=== PATIENT | female | born 1945 | race Caucasian/White ===

== ENCOUNTER → 2023-10-04 14:36 | Outpatient (REF) | payer MEDICARE, OTHER, SELFPAY ==
[2023-10-04 15:21] LABS: B.E. 8.7 mmol/L; HCO3 32.8 mmol/L (21-28); PCO2 42 mmHg (32-35); PO2 74 mmHg (83-108)
== END ==
LOC: RSP 14:36
PROVIDERS: ATTENDING PHYSICIAN Internal Medicine Critical Care Medicine; FAMILY PHYSICIAN Family Medicine
DX: J44.9 Chronic obstructive pulmonary disease, unspecified (principal)
CPT/HCPCS: 36415; 36600; 82805

== ENCOUNTER → 2024-03-19 14:04 | Outpatient (REF) | payer MEDICARE, OTHER, SELFPAY | LOC: HWRAD 14:04 | PROVIDERS: ATTENDING PHYSICIAN Internal Medicine Critical Care Medicine; FAMILY PHYSICIAN Family Medicine | DX: R06.09 Other forms of dyspnea (principal); R91.1 Solitary pulmonary nodule | CPT/HCPCS: 71250 ==

== ENCOUNTER 2024-09-15 16:28 | Emergency (ER) | payer MEDICARE, OTHER, SELFPAY ==
[2024-09-15 16:31] VITALS: BP 158/81; BMI 25.0
[2024-09-15 16:36] VITALS: BP 158/81
--- NOTE | 2024-09-15 16:41 | ED.GENMED ---
History of Present Illness
General
Chief Complaint: Weakness
Source: patient and family (son at bedside)
Exam Limitations: none
Time Seen by Provider: 09/15/24 16:38
Nursing documentation reviewed up to this point in time: agreed with
History of Present Illness
History of Present Illness:
78 yo female from home where she lives with her is here for 'I fell' and 'I just want to sleep all the time.' Son, Goyo, at bedside states pt fell 3 times in past 72 hours. This a.m. walking from bathroom, got weak and fell, hitting back
of head on dresser. No LOC, not anticoagulated, no significant injury from falls. Scrape left upper arm and bruise L thumb from previous recent fall.
Son states past 2 days pt has had no appetite, feels more SOB with more cough than usual, coughed up a 'big yellow mucus plug' this a.m., pt stays in bed most of time for past year. Gets up to use BR and to use her nebulizer. Does not use can or
walker
Goyo states PCP has told them she is 'maxed out' on any further therapies for her COPD and has prescribed Morphine. Son is interested in speaking to someone about Palliative vs Hospice care.
Goyo states pt's son from another marriage at age 59 two weeks ago of [place], [place]. She did not have a close relationship with him and he lived over 3 hours away so had not seen him or spoken to him for over 15 years and past few years she spoke
with him on phone a few times and she always had hope that he would come see her.
They cremated him 2 days ago. Son at bedside states there is an element of depression here due to this situation.
Pt denies CP, n/v/d/c.
Past History
Past History
ED Past Medical History: Arrthythmia, HTN and Hypercholesterolemia
ED Past Surgical History: Cardiac and Orthopedic
Social History
Tobacco: Non-smoker (Pacemaker)
Personal:
Living: with family
Family History
Family History: Negative Diabetes, Hypertension, Early CAD, Asthma or Cancer
Review of Systems
Review of Systems
Allergies reviewed?: Yes
All Other Systems: ROS reviewed and negative except as documented in HPI and ROS
Constitutional: Reports fatigue; Denies fever
EENT: Denies sore throat
Respiratory: Reports cough and trouble breathing
Cardiac: Denies chest pain
ABD/GI: Denies abdominal pain, nausea, vomiting or diarrhea
: Denies dysuria or difficulty voiding
Musculoskeletal: Reports no symptoms; Denies edema
Skin: Reports no symptoms
Neurological: Reports no symptoms
Psychiatric: Reports depression and anxiety
Phy Exam
Physical Exam
Physical Exam:
GENERAL: No acute distress. Chronically ill appearing. A&Ox3.
CONSTITUTIONAL: Afebrile.
EYES: clear, conjunctivae normal
ENMT: moist mucus membranes, Pharynx nl
RESPIRATORY: Regular respirations, mildly labored, lungs with diminished BS throughout, occasional cough noted.
CARDIOVASCULAR: Regular rate and rhythm, no murmurs, no rubs.
GI: Soft, nontender, normal BS
MUSCULOSKELETAL: Moves with ease. Well perfused. No edema
SKIN: Warm, dry, pink
PSYCH: Anxious mood and affect. Well kept, interactive and appropriate
NEUROLOGIC: Awake, alert and oriented. No focal neurological deficits
Course
Orders/Labs/Results
Orders:
Orders
09/15/24 16:39
Urinalysis Reflex To Culture Urgent
Date Specimen was Collected: 09/15/24
Time Specimen was Collected: 17:17
0.9% Sodium Chloride 1000 ml [Nss] 1,000 ml IV BOLUS
09/15/24 16:40
Electrocardiogram (*1) Urgent
Reason for Study: Fatigue / Weakness
EKG- Treatment ONCE
CR Chest Single View Urgent
Reason For Exam: SOB, cough, hx COPD
09/15/24 16:42
COVID-19 Antigen Urgent
Source: Nasal Swab
Complete Blood Count/With Diff Urgent
Comprehensive Metabolic Panel Urgent
Influenza A+B Rapid Molecular Urgent
ISMAEL Source: Nasal Swab
Specimen Description:
09/15/24 17:54
Lorazepam [Ativan] 1 mg PO NOW STA
09/15/24 17:55
Lorazepam [Ativan] 1 mg .ROUTE .STK-MED ONE
09/15/24 18:33
Ipratropium/Albuterol Sulfate [Duoneb] 3 ml INH R NOW STA
09/15/24 18:35
Morphine Sulfate [Morphine Oral Solution] 5 mg PO NOW STA
Abnormal Lab Results
09/15/24
16:42
RBC 3.74 L 10^6/uL
(4.20-5.40)
Hgb 11.6 L g/dL
(12.0-16.0)
Hct 36.9 L %
(37.0-47.0)
MCHC 31.4 L g/dL
(33.0-37.0)
Absolute Neuts (auto) 6.7 H 10^3/uL
(1.4-6.5)
Absolute Lymphs (auto) 0.4 L 10^3/uL
(1.2-3.4)
Neutrophils % 87.8 H %
(42.2-75.2)
Lymphocytes % 5.3 L %
(20.5-51.1)
Carbon Dioxide 35 H mmol/L
(22-30)
BUN 38 H mg/dl
(7-17)
Glucose 126 H mg/dl
(70-99)
AST 43 H U/L
(14-36)
09/15/24 16:42
09/15/24 16:42
Vital Signs
Initial and Last Documented VS:
Initial Vital Signs
Temp Pulse Resp BP Pulse Ox
98.0 F 81 18 158/81 99
09/15/24 16:31 09/15/24 16:31 09/15/24 16:31 09/15/24 16:31 09/15/24 16:31
Last Documented Vital Signs
Temp Pulse Resp BP Pulse Ox
98.0 F 89 20 150/78 100
09/15/24 16:31 09/15/24 19:30 09/15/24 17:45 09/15/24 19:00 09/15/24 19:15
MDM/Problems Addressed
Differential Diagnosis Includes:
COPD exacerbation, PNA
MDM/Problems Addressed:
78 yo female from home where she lives with her is here for 'I fell' and 'I just want to sleep all the time.' Son, Goyo, at bedside states pt fell 3 times in past 72 hours. This a.m. walking from bathroom, got weak and fell, hitting back
of head on dresser. No LOC, not anticoagulated, no significant injury from falls. Scrape left upper arm and bruise L thumb from previous recent fall.
Son states past 2 days pt has had no appetite, feels more SOB with more cough than usual, coughed up a 'big yellow mucus plug' this a.m., pt stays in bed most of time for past year. Gets up to use BR and to use her nebulizer. Does not use can or
walker
Goyo states PCP has told them she is 'maxed out' on any further therapies for her COPD and has prescribed Morphine. Son is interested in speaking to someone about Palliative vs Hospice care.
Goyo states pt's son from another marriage at age 60 two weeks ago of [place], [place]. She did not have a close relationship with him and he lived over 3 hours away so had not seen him or spoken to him for over 15 years and past few years she spoke
with him on phone a few times and she always had hope that he would come see her.
They cremated him 2 days ago. Son at bedside states there is an element of depression here due to this situation.
Pt denies CP, n/v/d/c.
5:30 p.m.
CBC with no clinically significant abnormality
CMP: BUN 38 IVF's infusing for dehydration, otherwise normal CMP
UA: Neg
COVID-negative
Flu negative
EKG NSR
At request of son, Message sent to Case Management to please contact giuliano Nance to discuss Palliative/Hospice care.
Son is getting walker and giving it to pt.
Esperanza from Case Management spoke with son
Pt requesting Ativan, given her prescribed dose
CXR: NAD
CW is setting up home care. So given info for Palliative Care.
7:00 p.m.
Pt remains stable, intermittent anxiety, pulse ox maintaining 99-100% on 4L NC
Pt stable for discharge
Chronic conditions affecting care: HTN, COPD and Psychiatric illness (depression)
*EKG
EKG Intrepretation Date: 09/15/24
Interpretation: normal
Heart Rate: 78
Rate: normal
Rhythm: sinus
[place]: normal axis
Interval: normal interval
QRS Pattern: normal QRS
Ischemia: no ischemia
*Critical Care Note
Total Time (30-74mins, 75-104mins- exclusive of procedures): Not Applicable
ED Attending Note
-
Portions of this chart may have been created with voice recognition software.� Occasional wrong word or��sound alike� substitutions may have occurred due to the inherent limitations of voice recognition software.
Discharge Plan
Departure
Patient Disposition: Home (Routine Discharge)
Date of Disposition: 09/15/24
Time of Disposition: 19:21
Patient with high blood pressure during this ER visit?: No
Condition: Fair
Discharge Problem:
Anxiety
Instructions: Anxiety in adults - ED discharge instructions
Prescriptions:
No Action
lorazepam 1 MG tablet
1 mg PO TID
sennosides [Senokot] 8.6 mg Tablet
17.2 mg PO DAILY
azithromycin 250 mg Tablet
250 mg PO MOWEFR
cyanocobalamin (vitamin B-12) 1,000 mcg Tablet
1,000 mcg PO DAILY@1200
Theragen Tablet
1 tab PO DAILY@1200
omeprazole 40 mg Capsule,Delayed Release(Dr/Ec)
40 mg PO DAILY
aspirin 81 mg Tablet,Delayed Release (Dr/Ec)
81 mg PO DAILY
calcium carbonate [Calcium 500] 500 mg calcium (1,250 mg) Tablet
1,200 mg PO DAILY@1200
ascorbic acid (vitamin C) [Vitamin C] 500 mg Tablet
1,000 mg PO DAILY@1200
lisinopril 10 mg Tablet
10 mg PO DAILY
Hair,Skin and Nails Tablet
3 tab PO DAILY@1200
albuterol sulfate [ProAir HFA] 90 mcg/actuation Hfa Aerosol Inhaler
2 puff INHALATION R QIDPRN PRN (Reason: sob)
loratadine 10 mg Tablet
10 mg PO DAILY
escitalopram oxalate [Lexapro] 10 mg Tablet
10 mg PO DAILY
glucosamine-chondroitin [Osteo Bi-Flex] 250-200 mg Tablet
1 tab PO DAILY@1200
rosuvastatin [Crestor] 10 mg Tablet
2.5 mg PO DAILY
gabapentin 100 mg Tablet
100 mg PO DAILY
cholecalciferol (vitamin D3) [Vitamin D3] 25 mcg (1,000 unit) Tablet
50 mcg PO DAILY@1200
biotin 5 mg Tablet
5 mg PO DAILY@1200
omega 0-oqv-mwh-fish oil [Fish Oil] 1,000 (120-180) mg Capsule
2 cap PO DAILY@1200
PreserVision AREDS 2,148 mcg-113 mg-45 mg-17.4mg Tablet
1 tab PO BID
prednisone 10 MG tablet
10 mg PO BID
ipratropium-albuterol [DuoNeb] 0.5 mg-3 mg(2.5 mg base)/3 mL Solution For Nebulization
3 ml INHALATION R Q6HPRN PRN (Reason: sob)
albuterol sulfate 2.5 mg /3 mL (0.083 %) Solution For Nebulization
2.5 mg INHALATION R QID
budesonide 0.5 mg/2 mL Suspension For Nebulization
0.5 mg INHALATION R BID
tramadol 50 mg Tablet
50 mg PO TID
morphine 10 mg/5 mL Solution
5 mg PO QID
Referrals:
Jacobo Newton MD [Family Provider] - As needed
Activity Restrictions/Additional Instructions:
As we discussed, your workup here today shows nothing worrisome.
Continue your current medications
Consider home health care and Palliative Care
Interventions
Interventions:
*Risk Screen - Suicide Last Done: 09/15/24 16:31
*General Assessment Last Done: 09/15/24 16:31
*Neglect/Abuse Screening Last Done: 09/15/24 16:31
ED- Fall Risk Assessment Last Done: 09/15/24 18:03
*ED COVID-19 Vaccine History Last Done: 09/15/24 16:40
*Nursing Disposition Last Done: 09/15/24 20:03
ED- Cardiac Assessment Last Done: 09/15/24 16:31
ED- Neurological Assessment Last Done: 09/15/24 16:31
ED- Pulmonary Assessment Last Done: 09/15/24 16:31
Discharge Date and Time
Discharge Date/Time: 09/15/24 20:03
Print Language: EQUATORIAL GUINEAN
[2024-09-15 17:00] VITALS: BP 149/89
[2024-09-15] MEDS: NSS 1000 IV (17:00)
[2024-09-15 17:02] LABS: % Basophils 0.7 % (0-2); % Eosinophils 0.1 % (0-6); % Immature Granulocytes 0.4 % (0-0.5); % Lymphocytes 5.3 % (20.5-51.1); % Monocytes 5.7 % (1.7-9.3); % Neutrophils 87.8 % (42.2-75.2); Absolute Basophils 0.1 10^3/uL (0-0.2); Absolute Lymphocytes 0.4 10^3/uL (1.2-3.4); Absolute Monocytes 0.4 10^3/uL (0.1-0.6); Absolute Neutrophils 6.7 10^3/uL (1.4-6.5); Hematocrit 36.9 % (37.0-47.0); Hemoglobin 11.6 g/dL (12.0-16.0); Mean Corp Hgb Conc. 31.4 g/dL (33.0-37.0); Mean Corpuscular Volume 98.7 fL (81.0-99.0); Mean Platelet Volume 10.1 fL (7.4-10.4); Nucleated Red Blood Cells % 0 %; Platelet Count 193 10^3/uL (130-400); Red Blood Cell Count 3.74 10^6/uL (4.20-5.40); Red Cell Dist. Width 13.2 % (11.5-14.5); White Blood Cell Count 7.6 10^3/uL (4.8-10.8)
[2024-09-15 17:19] LABS: COVID-19 Antigen Negative (Negative)
[2024-09-15 17:28] LABS: ALT (SGPT) 27 U/L (0-35); AST (SGOT) 43 U/L (14-36); Albumin 3.9 g/dl (3.5-5.0); Alkaline Phosphatase 52 U/L (38-126); Blood Urea Nitrogen 38 mg/dl (7-17); Calcium 9.1 mg/dl (8.4-10.2); Chloride 99 mmol/L (98-107); Estimated Creatinine Clearance 77 ml/min; Glucose 126 mg/dl (70-99); Potassium 4.6 mmol/L (3.5-5.1); Sodium 139 mmol/L (135-145); Total Bilirubin 0.5 mg/dl (0.2-1.3); Total Protein 6.5 g/dl (6.3-8.2); eGFR > 60.00
[2024-09-15 17:41] VITALS: BP 154/81
[2024-09-15 17:44] LABS: Carbon Dioxide 35 mmol/L (22-30)
[2024-09-15] MEDS: ATIVAN 1 MG PO (18:01)
--- NOTE | 2024-09-15 18:09 | CM ---
CM reviewed medical records. CM discussed hospice, palliative care and VN options. Patient's son stated that patient has been declining recently including decreased appetite, decreased mobility and depression. Son stated that he understands that
patient is end stage COPD and would like to discuss palliative care. Son stated that he is unsure what services patient has, but he stated that 'no one comes to the house'. CM provide written information on Palliative Care.
CM spoke with patient. She is agreeable to [facility]. CM sent referral via [facility].
CM updated son.
[2024-09-15 18:15] LABS: Urine Albumin Negative (Neg - Trace); Urine Bilirubin Negative (Negative); Urine Character Clear (Clear); Urine Color Yellow; Urine Glucose Negative (Negative); Urine Ketone Negative (Negative); Urine Leukocyte Negative (Negative); Urine Nitrite Negative (Negative); Urine Occult Blood Negative (Negative); Urine Urobilinogen Negative (Neg - 1+)
[2024-09-15] MEDS: DUONEB 3 ML INH (18:35)
[2024-09-15 19:00] VITALS: BP 150/78
[2024-09-15] MEDS: MORPHINE ORAL SOLUTION 5 MG PO (19:05)
== END 2024-09-15 20:03 | disposition home or self-care (01) ==
LOC: EMR 16:28
PROVIDERS: Registered Nurse; EMERGENCY PHYSICIAN Emergency Medicine; FAMILY PHYSICIAN Family Medicine
DX: F41.9 Anxiety disorder, unspecified (principal); J44.9 Chronic obstructive pulmonary disease, unspecified; E86.0 Dehydration; F32.A Depression, unspecified; E78.00 Pure hypercholesterolemia, unspecified; I10 Essential (primary) hypertension
CPT/HCPCS: 94640; 96360; 99285; 71045; 80053; 81003; 85025; 87502; 87811; 93005